=== PATIENT | female | born 1995 | race Caucasian/White ===

== ENCOUNTER 2021-01-05 17:38 | Emergency (ER) | payer BC, SELFPAY ==
[2021-01-05 17:55] VITALS: BP 105/68; PULSE 88; RESP 16; TEMP 36.9; O2SAT 97
--- NOTE | 2021-01-05 18:10 | ED.URI ---
HPI - URI/Sore Throat General Chief Complaint: Upper Respiratory Infection Stated Complaint: sore throat Time Seen by Provider: 01/05/21 18:03 Source: patient and RN notes reviewed Mode of arrival: ambulatory Limitations: no limitations History of Present Illness HPI Narrative: Patient presents today complaining of sore throat since last night with a headache. Denies fever, congestion, rhinorrhea, cough, nausea, vomiting, diarrhea, loss of taste or smell, shortness of breath, or difficulty swallowing. Reports her throat is feeling more swollen than yesterday. Currently rates her pain 6/10 and has been taking DayQuil and cough drops. Cough drops are providing some relief. MD elicited complaint: sore throat Related Data Allergies Allergy/AdvReac Type Severity Reaction Status Date / Time No Known Allergies Allergy Verified 01/05/21 18:14 Review of Systems Review of Systems: Narrative: CONSTITUTIONAL: Denies body aches, fever, chills, or sweats. EYES: Denies visual changes, redness, or discharge. ENT: Denies rhinorrhea, congestion, or otalgia.+ Sore throat CARDIOVASCULAR: Denies chest pain, palpitations, or edema. RESPIRATORY: Denies cough or dyspnea. GASTROINTESTINAL: Denies abdominal pain, nausea, vomiting, or diarrhea. GENITOURINARY: Denies dysuria or hematuria. SKIN: Denies rash, itching, or wounds. MUSCULOSKELETAL: Denies back pain, joint pain, or myalgia. NEUROLOGIC: Denies numbness, tingling, or weakness. + Headache PSYCH: Denies depression or anxiety. PMFSH Comments At time of signature, I have reviewed and agree with nursing past medical, surgical, social and family history unless otherwise noted. Please see nursing chart for further information. There is no relevant family history pertinent to the presenting complaint Exam Narrative: Exam Narrative: GENERAL: Well-appearing, well-nourished, and in no acute distress. HEAD: Normocephalic, atraumatic. EYES: EOMI. No redness or drainage. Conjunctivae normal. ENT: Mucous membranes pink and moist. Nares clear. No rhinorrhea. TMs normal bilaterally. Throat mildly erythematous. Tonsils 3+ without exudate. Uvula midline. NECK: Normal AROM. Supple. No lymphadenopathy. CHEST: No respiratory distress. Clear to auscultation. HEART: Regular rate and rhythm. No murmur appreciated. Normal peripheral pulses. EXTREMITIES: Normal range of motion. No edema. SKIN: Warm, dry, no rash. Capillary refill normal. Normal skin turgor. NEURO: No focal deficits. Alert and oriented x3. Gait steady. PSYCH: Normal affect. No signs of depression or anxiety. Course Vital Signs Vital signs: Vital Signs Temperature 98.4 F 01/05/21 17:55 Pulse Rate 88 01/05/21 17:55 Respiratory Rate 16 01/05/21 17:55 Blood Pressure 105/68 01/05/21 17:55 Pulse Oximetry 97 01/05/21 17:55 Temperature 98.4 F 01/05/21 17:55 Pulse Rate 88 01/05/21 17:55 Respiratory Rate 16 01/05/21 17:55 Blood Pressure 105/68 01/05/21 17:55 Pulse Oximetry 97 01/05/21 17:55 Reviewed MDM - URI/Sore Throat Differential Diagnosis Differential diagnosis: Likely upper respiratory infection, viral infection, pharyngitis and other (Tonsillitis, strep throat) Lab Data Attestation: I reviewed the patient's lab results. Labs: Strep Screen Presumptive Negative *(Reference Range: Negative)* Critical Care Time Critical Care Time Critical Care Time: No Discharge Plan Discharge Clinical Impression: Acute tonsillitis Qualifiers: Pharyngitis/tonsillitis etiology: unspecified etiology Qualified Code(s): J03.90 - Acute tonsillitis, unspecified Patient Disposition: Home, Self-Care Condition: Stable Instructions: Tonsillitis (ED) Additional Instructions: Your rapid strep swab was negative today at [facility]. You will be notified in a few days if the culture comes back positive for strep, and appropriate antibiotics will be
== END 2021-01-05 18:15 | disposition home or self-care (01) ==
PROVIDERS: Emergency Provider Nurse Practitioner
DX: J03.90 Acute tonsillitis, unspecified (principal)
CPT/HCPCS: 87081; 87147; 87880; 99213; G0463

== ENCOUNTER 2021-03-18 15:35 | Emergency (ER) | payer BC, SELFPAY ==
[2021-03-18 15:43] VITALS: BP 145/76; PULSE 96; RESP 16; TEMP 36.9; O2SAT 99
--- NOTE | 2021-03-18 15:49 | ED.SKABFB ---
HPI - Skin/Abscess/Foreign Bdy General Chief complaint: Skin/Abscess/Foreign Body Stated complaint: Sore of left Foot Time Seen by Provider: 03/18/21 15:49 Source: patient Mode of arrival: ambulatory Limitations: no limitations History of Present Illness HPI narrative: Damaris Mackenzie is a 26 yo female with no PMH who comes with a an area of excoriation on the right dorsum of foot after wearing a new pair of of casual shoes on 03/07. 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 Denies any medical condition- blood sugar is 123 here, she is a non-smoker, socially drinks Related Data Allergies Allergy/AdvReac Type Severity Reaction Status Date / Time No Known Allergies Allergy Verified 03/18/21 16:00 Review of Systems Review of Systems: Narrative: CONSTITUTIONAL: Denies fever, chills, sweats. EYES: Denies visual changes, redness, discharge. ENT: Denies rhinorrhea, congestion, sore throat, otalgia. CARDIOVASCULAR: Denies chest pain, palpitations, edema. RESPIRATORY: Denies dyspnea, wheezing, cough GASTROINTESTINAL: Denies abdominal pain, nausea, vomiting, diarrhea. GENITOURINARY: Denies dysuria, hematuria, abnormal discharge SKIN: Denies rash or itching. Area of excoriation of the dorsum of right foot NEUROLOGIC: Denies numbness, or focal weakness. PSYCHIATRIC: Denies anxiety or depression. [facility] Past Medical History Medical History (Updated 03/18/21 @ 16:17 by Kamille Delgado CNP) No acute medical problems Family History Family History (Updated 03/18/21 @ 16:07 by Kamille Delgado CNP) Other Hypertension Social History Social History (Updated 03/18/21 @ 16:07 by Kamille Delgado CNP) Smoking status: Never smoker Alcohol intake: current Comments At time of signature, I agree with nursing past medical, surgical, social and family history. There is no relevant family history pertinent to the presenting complaint. Exam Narrative: Exam Narrative: GENERAL: This is a well-nourished, well-developed patient, in mild distress. HEAD: normocephalic, atraumatic. EYES: Sclera clear/white. Vision is grossly intact. EARS: External ears normal, . Hearing grossly intact. NOSE: External nose normal without nasal discharge, nares without redness, no rhinorrhea. THROAT: Mucous membranes moist, NECK: Neck supple, non-tender CARDIOVASCULAR: Regular rate and rhythm without murmurs, gallops, or rubs. RESPIRATORY: Clear to auscultation. Breath sounds equal bilaterally. No wheezes, rales, or rhonchi. GASTROINTESTINAL: Abdomen soft, SKIN: warm, intact with 6 x 2.5 area of excoriation, no drainage, top layer is removed, pain is 1/10 NEURO: awake, alert, and oriented to person, place and time. There were no obvious focal neurologic abnormalities. Steady gait EXTREMITIES: Normal range of motion. BACK: Nontender without deformity Course Course Emergency Course: Excoriated on area on foot due to new shoes-plan is to use triamcinolone cream leave area open for the next day or 2 if possible start on Keflex orally, when working keep area covered with Telfa dressing and wicking socks If area does not start to heal follow-up with the junior accounting clerk referrals given Vital Signs Vital signs: Vital Signs Temperature 98.4 F 03/18/21 15:43 Pulse Rate 96 03/18/21 15:43 Respiratory Rate 16 03/18/21 15:43 Blood Pressure 145/76 H 03/18/21 15:43 Pulse Oximetry 99 03/18/21 15:43 Temperature 98.4 F 03/18/21 15:43 Pulse Rate 96 03/18/21 15:43 Respiratory Rate 16 03/18/21 15:43 Blood Pressure 145/76 H 03/18/21 15:43 Pulse Oximetry 99 03/18/21 15:43 MDM - Skin/Abscess/Foreign Bdy Differential Diagnosis Differential diagnosis: Likely abscess of skin or subcutaneous tissue, viral exanthem, urticaria, cellulitis, eczema and contact dermatitis Lab Data Labs: Lab Results 03/18/21 Range/Units 15:58 POC Cap
[2021-03-18 16:01] LABS: Glucose Point of Care 123 mg/dl (65-105)
== END 2021-03-18 16:20 | disposition home or self-care (01) ==
PROVIDERS: Emergency Provider Nurse Practitioner
DX: S91.302A Unspecified open wound, left foot, initial encounter (principal); X58.XXXA Exposure to other specified factors, initial encounter
CPT/HCPCS: 82948; 99213; G0463

== ENCOUNTER 2021-04-11 09:51 | Emergency (ER) | payer BC, SELFPAY ==
[2021-04-11 09:56] VITALS: BP 133/76; PULSE 89; RESP 18; TEMP 37.3; O2SAT 99
[2021-04-11 10:04] VITALS: BP 133/76; PULSE 89; RESP 18; TEMP 37.3; O2SAT 99
--- NOTE | 2021-04-11 10:41 | ED.URI ---
HPI - URI/Sore Throat General Chief Complaint: Upper Respiratory Infection Stated Complaint: Sore Throat Time Seen by Provider: 04/11/21 10:05 Source: patient, RN notes reviewed and old records reviewed Mode of arrival: ambulatory Limitations: no limitations History of Present Illness HPI Narrative: 26 year old female presents to [facility] care with complaints of sore throat and myalgia which started yesterday. Patient states that she has history of strep pharyngitis. She is also concerned that she may also have been exposed to [place] and wants to be checked. Patient denies any fevers,chills, or sweats. She denies any headache, nasal congestion or drainage, no ear pain or cough. She states that her throat is painful with swallowing but has been taking fluids well, denies any nausea or vomiting. MD elicited complaint: sore throat Pertinent past history: other (previous strep throat) Onset (ago): day(s) (1) Consistency: constant Severity: moderate Pain scale (0-10): 6 Able to tolerate fluids by mouth: Yes Exacerbating factors: swallowing Context: sick contacts Associated symptoms: myalgias Treatments prior to arrival: none Related Data Allergies Allergy/AdvReac Type Severity Reaction Status Date / Time No Known Allergies Allergy Verified 04/11/21 10:03 Review of Systems Review of Systems: Narrative: CONSTITUTIONAL: Denies fever, chills, or sweats. EYES: Denies visual changes, redness, or discharge. ENT: Denies rhinorrhea, congestion, positive sore throat, no otalgia. CARDIOVASCULAR: Denies chest pain, palpitations, or edema. RESPIRATORY: Denies cough or dyspnea. GASTROINTESTINAL: Denies abdominal pain, nausea, vomiting, or diarrhea. GENITOURINARY: Denies dysuria or hematuria. SKIN: Denies rash or itching. MUSCULOSKELETAL: Denies back pain, joint pain, positive myalgia. NEUROLOGIC: Denies headache, numbness, or weakness. PSYCHIATRIC: Denies anxiety or depression. All systems reviewed & are unremarkable except as noted in HPI and below PMFSH Past Medical History Medical History (Updated 04/11/21 @ 11:21 by Anai Schwartz NP) No acute medical problems Surgical History Surgical History (Updated 04/11/21 @ 11:21 by Anai Schwartz NP) No history of previous surgery Family History Family History (Updated 04/11/21 @ 11:20 by Anai Schwartz NP) Grandparent Breast cancer Acute myocardial infarction Father Depression Other Hypertension Social History Social History (Updated 04/11/21 @ 11:20 by Anai Schwartz NP) Smoking status: Never smoker Alcohol intake: current Substance use: never Living arrangements: alone Gender identity (if verbalized by the patient): Female Comments At time of signature, agree with nursing past medical, surgical, social and family history. There is no relevant family history pertinent to the presenting complaint Exam Narrative: Exam Narrative: GENERAL: Well-appearing, well-nourished, and in no acute distress. HEAD: Normocephalic, atraumatic. EYES: PERRLA and EOMI. ENT: Nares clear, no rhinorrhea or epistaxis. Mucous membranes moist.TM's normal with good light reflex, throat red with no lesions or exudates left tonsil enlarged and red. NECK: Supple. lymphadenopathy left side CHEST: Clear to auscultation. No respiratory distress.SAO2 99% on room air HEART: Regular rate and rhythm. No murmur heard. Normal peripheral pulses. ABDOMEN: Soft, nontender, nondistended, normal active bowel sounds. EXTREMITIES: Normal range of motion. No edema. SKIN: Warm, dry, no rash. NEURO: No focal deficits. Alert and oriented x3. Course Vital Signs Vital signs: Vital Signs Temperature 37.3 C 04/11/21 09:56 Pulse Rate 89 04/11/21 09:56 Respiratory Rate 18 04/11/21 09:56 Blood Pressure 133/76 04/11/21 09:56 Pulse Oximetry 99 04/11/21 09:56 Temperature 37.3 C 04/11/21 10:04 Pulse Rate 89 04/11/21 10:04 Respiratory Rate 18 04/11/21 10:04 Blood Pre
== END 2021-04-11 10:54 | disposition home or self-care (01) ==
PROVIDERS: Emergency Provider Registered Nurse
DX: J02.0 Streptococcal pharyngitis (principal)
CPT/HCPCS: 36416; 86308; 87880; 99213; G0463

== ENCOUNTER 2022-02-14 14:15 | Emergency (ER) | payer OTHER, BC, SELFPAY ==
--- NOTE | 2022-02-14 14:18 | ED.LOWEXIN ---
HPI - Extremity Injury (Lower) General Chief Complaint: Extremity Injury, Lower Stated Complaint: Right Leg Injury Time Seen by Provider: 02/14/22 14:18 Source: patient and RN notes reviewed History of Present Illness HPI Narrative: Patient is a 27-year-old female who presents the urgent care with complaints of right groin pain. Patient states that she stepped off some high scaffolding with her left leg and her right leg got hung up on the scaffolding. Patient states she has been taking an old muscle relaxer with mild improvement. Patient also took Aleve. No other acute complaints. No acute distress noted. Patient aware of the plan of care. Some parts of this dictation were generated by voice recognition software and may contain typographical and/or grammatical inaccuracies. Related Data Allergies Allergy/AdvReac Type Severity Reaction Status Date / Time No Known Allergies Allergy Verified 02/14/22 14:32 Review of Systems Review of Systems: CONSTITUTIONAL: Denies fever, chills, or sweats. EYES: Denies visual changes, redness, or discharge. ENT: Denies rhinorrhea, congestion, sore throat, or otalgia. CARDIOVASCULAR: Denies chest pain, palpitations, or edema. RESPIRATORY: Denies cough or dyspnea. GASTROINTESTINAL: Denies abdominal pain, nausea, vomiting, or diarrhea. GENITOURINARY: Denies dysuria or hematuria. SKIN: Denies rash or itching. MUSCULOSKELETAL: Reports of right groin pain NEUROLOGIC: Denies headache, numbness, or weakness. All other systems reviewed are negative, except as documented in HPI. [facility] Past Medical History Medical History (Updated 02/14/22 @ 14:50 by CHARLENE Tamez) No acute medical problems Surgical History Surgical History (Updated 04/11/21 @ 11:21 by Anai Schwartz NP) No history of previous surgery Family History Family History (Updated 04/11/21 @ 11:20 by Anai Schwartz NP) Grandparent Breast cancer Acute myocardial infarction Father Depression Other Hypertension Social History Social History (Updated 04/11/21 @ 11:20 by Anai Schwartz NP) Smoking status: Never smoker Alcohol intake: current Substance use: never Gender identity (if verbalized by the patient): Female Comments At the time of my signature, I reviewed and agree with the nursing past medical, surgical, social, and family history. There is no relevant family history pertinent to the patient complaint. Exam Narrative: GENERAL: This is a well-nourished, well-developed patient, in no apparent distress. HEAD: normocephalic, atraumatic. EYES: PERRL. Sclera clear/white. Vision is grossly intact. EARS: External ears normal NOSE: External nose normal with no obvious nasal discharge, nares without redness, no rhinorrhea. THROAT: Mucous membranes moist NECK: Neck supple CARDIOVASCULAR: Regular rate and rhythm without murmurs, gallops, or rubs. RESPIRATORY: Clear to auscultation. Breath sounds equal bilaterally. No wheezes, rales, or rhonchi. SKIN: warm, intact with no suspicious lesions or rash, good texture and turgor. NEURO: awake, alert, and oriented to person, place and time. There were no obvious focal neurologic abnormalities. EXTREMITIES: No clubbing, cyanosis, or edema. Moderate inguinal right groin tenderness without ecchymosis or edema. Range of motion to right lower extremity within normal limits with mild exacerbated pain on abduction, abduction Course Course Level of Care: Express Care Visit Vital Signs Vital signs: Vital Signs Temperature 98.4 F 02/14/22 14:20 Pulse Rate 78 02/14/22 14:20 Respiratory Rate 20 02/14/22 14:20 Blood Pressure 138/73 02/14/22 14:20 Pulse Oximetry 100 02/14/22 14:20 Temperature 98.4 F 02/14/22 14:20 Pulse Rate 78 02/14/22 14:20 Respiratory Rate 20 02/14/22 14:20 Blood Pressure 138/73 02/14/22 14:20 Pulse Oximetry 100 02/14/22 14:20 Reviewed MDM - Extremity Injury (Lower) MDM Narrative Medic
[2022-02-14 14:20] VITALS: BP 138/73; PULSE 78; RESP 20; TEMP 36.9; O2SAT 100
== END 2022-02-14 14:55 | disposition home or self-care (01) ==
PROVIDERS: Emergency Provider Nurse Practitioner Family
DX: S39.011A Strain of muscle, fascia and tendon of abdomen, initial encounter (principal); W22.09XA Striking against other stationary object, initial encounter
CPT/HCPCS: 99213; G0463

== ENCOUNTER 2022-03-27 15:26 | Emergency (ER) | payer BC, SELFPAY ==
[2022-03-27 15:40] VITALS: BP 130/89; PULSE 82; RESP 16; TEMP 36.8; O2SAT 98
--- NOTE | 2022-03-27 16:18 | ED.DENTAL ---
HPI - Dental/Oral General Chief complaint: Dental/Oral Stated complaint: gums are swollen & tender Time Seen by Provider: 03/27/22 16:20 Source: patient Mode of arrival: ambulatory Limitations: no limitations History of Present Illness HPI Narrative: 27-year-old female presents with concern for right lower jaw pain, pain in the gum area and a sore on her tongue. She reports 3 days of symptoms. Reports she has been to the dentist in a while. She denies broken teeth, missing teeth, cavities. She denies trouble swallowing, fever, headache, body aches. MD Complaint: tooth pain Related Data Allergies Allergy/AdvReac Type Severity Reaction Status Date / Time No Known Allergies Allergy Verified 02/14/22 14:32 Review of Systems Review of Systems: CONSTITUTIONAL: Denies malaise, chills, sweats, or fever. EYES: Denies visual changes ENT: Denies rhinorrhea, congestion, sinus pain, otalgia or sore throat. Reports right jaw pain, right gumline pain, sore on her tongue. CARDIOVASCULAR: Denies chest pain, palpitations RESPIRATORY: Denies cough or dyspnea. SKIN: Denies rash or itching. MUSCULOSKELETAL: Denies myalgia. NEUROLOGIC: Denies numbness, weakness, or headache. All systems reviewed & are unremarkable except as noted in HPI and below PMFSH Past Medical History Medical History (Updated 03/27/22 @ 16:27 by Leyla Freire NP) No acute medical problems Surgical History Surgical History (Updated 04/11/21 @ 11:21 by Anai Schwartz NP) No history of previous surgery Family History Family History (Updated 04/11/21 @ 11:20 by Anai Schwartz NP) Grandparent Breast cancer Acute myocardial infarction Father Depression Other Hypertension Social History Social History (Updated 04/11/21 @ 11:20 by Anai Schwartz NP) Smoking status: Never smoker Alcohol intake: current Substance use: never Gender identity (if verbalized by the patient): Female Comments At time of signature, agree with nursing past medical, surgical, social and family history. There is no relevant family history pertinent to the presenting complaint Exam Narrative: GENERAL: Well-appearing, well-nourished, and in no acute distress. HEAD: Normocephalic, atraumatic. EYES: PERRLA, sclera clear ENT: Nares clear, turbinates pink, no rhinorrhea or epistaxis. Mucous membranes moist. TM pearly franco with sharp light reflex bilaterally; no tragal tenderness. Oropharynx without erythema or lesions. Tonsils not enlarged and without exudate. Nomissing teeth, broken teeth, caries, no periapical abscess noted. Raw skin noted to the lateral tongue. Right jaw tenderness NECK: Supple. No lymphadenopathy. CHEST: No respiratory distress. Speaks in full sentences. HEART: Regular rate and rhythm. SKIN: Warm, dry, no visible rash. NEURO: Alert and oriented x3. PSYCH: Normal mood and affect Course Course Emergency Course: Patient is aware of diagnosis, understands and agrees to treatment plan. Anticipatory guidance given. Patient agrees to follow-up as directed and is aware of reasons to seek care at the emergency department. Portions of this record may have been created with voice recognition software Level of Care: Express Care Visit Vital Signs Vital signs: Vital Signs Temperature 98.3 F 03/27/22 15:40 Pulse Rate 82 03/27/22 15:40 Respiratory Rate 16 03/27/22 15:40 Blood Pressure 130/89 03/27/22 15:40 Pulse Oximetry 98 03/27/22 15:40 Oxygen Delivery Room Air 03/27/22 15:40 Temperature 98.3 F 03/27/22 15:40 Pulse Rate 82 03/27/22 15:40 Respiratory Rate 16 03/27/22 15:40 Blood Pressure 130/89 03/27/22 15:40 Pulse Oximetry 98 03/27/22 15:40 Oxygen Delivery Room Air 03/27/22 15:40 Reviewed. MDM - Dental/Oral MDM Narrative Medical decision making narrative: Patients pain and complaint coupled with physical findings are consistant with dentalgia. There are no focal signs of space
== END 2022-03-27 16:30 | disposition home or self-care (01) ==
PROVIDERS: Emergency Provider Nurse Practitioner
DX: K08.89 Other specified disorders of teeth and supporting structures (principal)
CPT/HCPCS: 99213; G0463

== ENCOUNTER 2022-05-07 11:55 | Emergency (ER) | payer BC, SELFPAY ==
[2022-05-07 12:15] VITALS: BP 131/77; PULSE 73; RESP 20; TEMP 36.9; O2SAT 100
--- NOTE | 2022-05-07 13:27 | ED.GENADULT ---
HPI - General Adult General Chief complaint: Upper Respiratory Infection Stated complaint: Sore throat Source: patient Mode of arrival: ambulatory Limitations: no limitations History of Present Illness HPI narrative: Patient presents for evaluation of sore throat since last night. She indicates it started as a scratchy sensation but now she reports pain. No fever, chills, nausea, vomiting, otalgia, or respiratory symptoms. She took a home COVID test which was negative. She has had similar symptoms in the past with strep. No recent sick contacts to her knowledge. She is not taking any medication to assist with her symptoms. In the past her rapid strep testing was negative but subsequent culture was positive. She saw some white exudate in her posterior pharynx earlier today. No additional complaints or concerns Related Data Allergies Allergy/AdvReac Type Severity Reaction Status Date / Time No Known Allergies Allergy Verified 02/14/22 14:32 Review of Systems Review of Systems: CONSTITUTIONAL: Denies fever, chills, or sweats. EYES: Denies visual changes, redness, or discharge. ENT: Reports sore throat. Denies rhinorrhea, congestion or otalgia. CARDIOVASCULAR: Denies chest pain, palpitations, or edema. RESPIRATORY: Denies cough or dyspnea. GASTROINTESTINAL: Denies abdominal pain, nausea, vomiting, or diarrhea. GENITOURINARY: Denies dysuria or hematuria. SKIN: Denies rash or itching. MUSCULOSKELETAL: Denies back pain, joint pain, or myalgia. NEUROLOGIC: Denies headache, numbness, dizziness, or weakness. PSYCHIATRIC: Denies anxiety or depression.. [facility] Past Medical History Medical History No acute medical problems Surgical History Surgical History No history of previous surgery Family History Family History Grandparent Breast cancer Acute myocardial infarction Father Depression Other Hypertension Social History Social History Smoking status: Never smoker Alcohol intake: current Substance use: never Living arrangements: alone Gender identity (if verbalized by the patient): Female Spiritual care concerns: No Exam Narrative: GENERAL: Well-appearing, well-nourished, and in no acute distress. HEAD: Normocephalic, atraumatic. EYES: PERRLA and EOMI. ENT: Nares clear, no rhinorrhea or epistaxis. Mucous membranes moist. Bilateral tonsillar enlargement with erythema and mild presence of white exudate. Uvula is midline. Bilateral TMs pearly franco nonbulging NECK: Supple. No adenopathy or masses. No carotid bruits or JVD CHEST: Clear to auscultation. No respiratory distress. No wheezes rales or rhonchi HEART: Regular rate and rhythm. No murmur heard. Normal peripheral pulses. ABDOMEN: Soft, nontender, nondistended, normal active bowel sounds. EXTREMITIES: Normal range of motion. No edema. SKIN: Warm, dry, no rash. NEURO: No focal deficits. Alert and oriented x3. PSYCH: Normal mood and affect. Course Course Emergency Course: This is a 27-year-old female who presented with complaints of abrupt onset sore throat. She has had strep in the past and this feels similar. In the past her rapid strep was negative but throat culture was positive. Rapid strep here negative. Will DC with amoxicillin. Increase hydration. Follow-up outpatient for further evaluation and treatment. Go to the ER for decline in condition. Patient is in agreement with plan of care. Level of Care: Express Care Visit Vital Signs Vital signs: Vital Signs Temperature 36.9 C 05/07/22 12:15 Pulse Rate 73 05/07/22 12:15 Respiratory Rate 20 05/07/22 12:15 Blood Pressure 131/77 05/07/22 12:15 Pulse Oximetry 100 05/07/22 12:15 Oxygen Delivery Room Air 05/07/22 12:15
== END 2022-05-07 13:30 | disposition home or self-care (01) ==
PROVIDERS: Emergency Provider Nurse Practitioner
DX: J02.9 Acute pharyngitis, unspecified (principal)
CPT/HCPCS: 87081; 87880; 99213; G0463

== ENCOUNTER 2022-08-15 13:45 | Emergency (ER) | payer BC, SELFPAY ==
--- NOTE | 2022-08-15 13:47 | ED.SKABFB ---
HPI - Skin/Abscess/Foreign Bdy General Chief complaint: Environmental Exposure Stated complaint: hands -allergic reaction Time Seen by Provider: 08/15/22 13:47 Source: patient and RN notes reviewed History of Present Illness HPI narrative: patient is a 27-year-old female who presents the Urgent Care complaints possible allergic reactions. Patient states that she wears gloves at work however does use chemicals and believes it is due to the chemical use. Patient states she noticed some blistering a few days ago. Patient has not been doing anything [id number] for her symptoms. No other acute complaints. No acute distress. Patient aware of the plan of care. Some parts of this dictation were generated by voice recognition software and may contain typographical and/or grammatical inaccuracies. Related Data Allergies Allergy/AdvReac Type Severity Reaction Status Date / Time No Known Allergies Allergy Verified 08/15/22 14:02 Review of Systems Review of Systems: CONSTITUTIONAL: Denies fever, chills, or sweats. EYES: Denies visual changes, redness, or discharge. ENT: Denies rhinorrhea, congestion, sore throat, or otalgia. CARDIOVASCULAR: Denies chest pain, palpitations, or edema. RESPIRATORY: Denies cough or dyspnea. GASTROINTESTINAL: Denies abdominal pain, nausea, vomiting, or diarrhea. GENITOURINARY: Denies dysuria or hematuria. SKIN: Bilateral hand blistering and erythema MUSCULOSKELETAL: Denies back pain, joint pain, or myalgia. NEUROLOGIC: Denies headache, numbness, or weakness. All other systems reviewed are negative, except as documented in HPI. [facility] Past Medical History Medical History No acute medical problems Surgical History Surgical History No history of previous surgery Family History Family History Grandparent Breast cancer Acute myocardial infarction Father Depression Other Hypertension Social History Social History Smoking status: Never smoker Alcohol intake: current Substance use: never Gender identity (if verbalized by the patient): Female Spiritual care concerns: No Comments At the time of my signature, I reviewed and agree with the nursing past medical, surgical, social, and family history. There is no relevant family history pertinent to the patient complaint. Exam Narrative: GENERAL: This is a well-nourished, well-developed patient, in no apparent distress. HEAD: normocephalic, atraumatic. EYES: PERRL. Sclera clear/white. Vision is grossly intact. EARS: External ears normal NOSE: External nose normal with no obvious nasal discharge, nares without redness, no rhinorrhea. THROAT: Mucous membranes moist NECK: Neck supple, non-tender without lymphadenopathy, masses or thyromegaly. SKIN: [id number] bilateral hand edema with mild erythema and blistering- chemical burn.warm, intact with no suspicious lesions or rash, good texture and turgor. NEURO: awake, alert, and oriented to person, place and time. There were no obvious focal neurologic abnormalities. EXTREMITIES: No clubbing, cyanosis, or edema. Course Course Level of Care: Express Care Visit Vital Signs Vital signs: Vital Signs Temperature 98.7 F 08/15/22 13:52 Pulse Rate 75 08/15/22 13:52 Respiratory Rate 20 08/15/22 13:52 Blood Pressure 114/79 08/15/22 13:52 Pulse Oximetry 100 08/15/22 13:52 Oxygen Delivery Room Air 08/15/22 13:52 Temperature 98.7 F 08/15/22 13:52 Pulse Rate 75 08/15/22 13:52 Respiratory Rate 20 08/15/22 13:52 Blood Pressure 114/79 08/15/22 13:52 Pulse Oximetry 100 08/15/22 13:52 Oxygen Delivery Room Air 08/15/22 13:52 reviewed MDM - Skin/Abscess/Foreign Bdy MDM Narrative Medical decision
[2022-08-15 13:52] VITALS: BP 114/79; PULSE 75; RESP 20; TEMP 37.1; O2SAT 100
== END 2022-08-15 14:24 | disposition home or self-care (01) ==
PROVIDERS: Emergency Provider Nurse Practitioner Family
DX: T23.602A Corrosion of second degree of left hand, unspecified site, initial encounter (principal); T23.601A Corrosion of second degree of right hand, unspecified site, initial encounter; T65.91XA Toxic effect of unspecified substance, accidental (unintentional), initial encounter; T32.0 Corrosions involving less than 10% of body surface; Y99.0 Civilian activity done for income or pay
CPT/HCPCS: 99213; G0463

== ENCOUNTER 2023-08-06 11:09 | Emergency (ER) | payer BC, SELFPAY ==
--- NOTE | 2023-08-06 11:16 | ED.URI ---
HPI - URI/Sore Throat General Chief Complaint: Ear Stated Complaint: Ear Pain/Cough Source: patient and RN notes reviewed History of Present Illness HPI Narrative: 28-year-old male presents to urgent care with complaints of a congested cough x2 weeks. Patient is also reporting right ear pain times 1 week. Patient states her right side of neck hurts and radiates down her right shoulder and right upper arm. Patient denies any fevers, chills numbness, tingling, sore throat, chest pain, shortness of breath, or vomiting. Related Data Allergies Allergy/AdvReac Type Severity Reaction Status Date / Time No Known Allergies Allergy Verified 08/15/22 14:02 Review of Systems Review of Systems: Pertinent positives and pertinent negatives per HPI. [facility] Past Medical History Medical History No acute medical problems Surgical History Surgical History No history of previous surgery Family History Family History Grandparent Breast cancer Acute myocardial infarction Father Depression Other Hypertension Social History Social History Smoking status: Never smoker Alcohol intake: current Substance use: never Living arrangements: alone Gender identity (if verbalized by the patient): Female Spiritual care concerns: No Comments At the time of my signature, I reviewed and agree with the nursing past medical, surgical, social, and family history. There is no relevant family history pertinent to the patient complaint. Exam Narrative: GENERAL: This is a well-nourished, well-developed patient, in no apparent distress. HEAD: normocephalic, atraumatic. EYES: Sclera clear/white. Vision is grossly intact. EARS: External ears normal, auditory canals clear and without drainage, left TM normal without perforation. Right TM bulging and erythremic. NOSE: External nose normal with no obvious nasal discharge. + congestion and sinus pressure. THROAT: Mucous membranes moist, posterior pharynx clear. NECK: Neck supple, non-tender without lymphadenopathy, masses or thyromegaly. pt has limited ROM with her neck due to pain on the right lateral side when she attempts to rotate to the left and right. No posterior neck pain. CARDIOVASCULAR: Regular rate and rhythm without murmurs, gallops, or rubs. RESPIRATORY: Mild rhonchi noted throughout the chest on auscultation. pt has congested cough in exam room. SKIN: warm, intact with no suspicious lesions or rash, good texture and turgor. NEURO: awake, alert, and oriented to person, place and time. There were no obvious focal neurologic abnormalities. EXTREMITIES: No clubbing, cyanosis, or edema. No joint tenderness, effusion, or edema noted. BACK: Nontender without deformity or crepitus. No flank tenderness. Course Course Level of Care: Express Care Visit Vital Signs Vital signs: Vital Signs Pulse Rate 76 08/06/23 11:18 Respiratory Rate 16 08/06/23 11:18 Blood Pressure 150/84 H 08/06/23 11:18 Pulse Oximetry 98 08/06/23 11:18 Oxygen Delivery Room Air 08/06/23 11:18 Pulse Rate 76 08/06/23 11:18 Respiratory Rate 16 08/06/23 11:18 Blood Pressure 150/84 H 08/06/23 11:18 Pulse Oximetry 98 08/06/23 11:18 Oxygen Delivery Room Air 08/06/23 11:18 Reviewed MDM - URI/Sore Throat MDM Narrative Medical decision making narrative: Go to the ER for any new or worsening symptoms. Avoid smoking/second-hand smoke. Continue to take Tylenol or Motrin for pain. Increase your Vitamin C intake. Use a humidifier or vaporizer at night. Take Medications as prescribed. Drink plenty of water. 8-10 glasses per day. Use flonase 2 times per day for 5 days then as needed Take mucinex 2 times per day and be sure to take with
[2023-08-06 11:18] VITALS: BP 150/84; PULSE 76; RESP 16; O2SAT 98
== END 2023-08-06 12:01 | disposition home or self-care (01) ==
PROVIDERS: Emergency Provider Nurse Practitioner Family
DX: J40 Bronchitis, not specified as acute or chronic (principal); H66.91 Otitis media, unspecified, right ear; S16.1XXA Strain of muscle, fascia and tendon at neck level, initial encounter; X58.XXXA Exposure to other specified factors, initial encounter
CPT/HCPCS: 99213; G0463

== ENCOUNTER 2023-08-23 12:55 | Emergency (ER) | payer BC, SELFPAY ==
--- NOTE | 2023-08-23 12:58 | ED.URI ---
HPI - URI/Sore Throat General Chief Complaint: Upper Respiratory Infection Stated Complaint: sore throat Time Seen by Provider: 08/23/23 12:56 Source: patient Mode of arrival: ambulatory Limitations: no limitations History of Present Illness HPI Narrative: Damaris is a 28-year-old female patient presenting to the clinic today with complaints of sore throat and slight cough x1 day. She is concerned she may have strep. No known fever, chills, body aches, abdominal pain, or headache. No known exposure to anyone with COVID, flu, or strep. MD elicited complaint: cough and sore throat Related Data Allergies Allergy/AdvReac Type Severity Reaction Status Date / Time No Known Allergies Allergy Verified 08/15/22 14:02 Review of Systems Review of Systems: Pertinent positives per HPI. Patient denies any fever, chills, rash, headache, visual changes, dizziness, cough, runny nose, sore throat, shortness of breath, chest pain, palpitations, nausea, vomiting, diarrhea, constipation, abdominal pain, or any urinary issues. PMFSH Past Medical History Medical History No acute medical problems Surgical History Surgical History No history of previous surgery Family History Family History Grandparent Breast cancer Acute myocardial infarction Father Depression Other Hypertension Social History Social History Smoking status: Never smoker Alcohol intake: current Substance use: never Living arrangements: alone Gender identity (if verbalized by the patient): Female Spiritual care concerns: No Comments At the time of my signature, I reviewed and agree with the nursing past medical, surgical, social, and family history. There is no relevant family history pertinent to the patient complaint. Exam Narrative: General: Well-developed, well nourished, in no apparent distress Head: Normocephalic, atraumatic Eyes: Pupils equally round and reactive to light bilaterally, EOM intact, sclera and conjunctive clear, no discharge, lids normal Ears: TMs intact and clear, ear canals clear, no drainage, grossly hearing normal. Nose: Nares patent, no discharge, no inflammation, no sinus tenderness. Mouth: Oropharynx without lesions or masses, good dentition, MMM. Neck: Supple, trachea midline, no enlargement of anterior or posterior cervical nodes, no thyroid masses or goiter palpable. Cardio: Regular rate and rhythm, s1 and s2 normal, no murmur appreciated. Resp: Clear to auscultation bilaterally anteriorly and posteriorly, no rhonchi, rales, wheezing or rubs Course Course Emergency Course: Portions of this record may have been created with voice recognition software. Level of Care: Express Care Visit Vital Signs Vital signs: Vital signs reviewed MDM - URI/Sore Throat MDM Narrative Medical decision making narrative: At the time of visit patient is resting comfortably on the exam table. Strep screen was obtained and was positive in the clinic today. Amoxicillin was sent to the pharmacy and supportive measures were discussed with the patient she voiced understanding discharge instructions agrees to treatment plan. Differential Diagnosis Differential diagnosis: Likely upper respiratory infection, otitis media, sinusitis, viral infection, bronchitis, influenza, pharyngitis and other (COVID) Discharge Plan Discharge Clinical Impression: Acute streptococcal pharyngitis Patient Disposition: Home, Self-Care Condition: Stable Instructions: Antibiotic Form, Strep Throat (ED) Additional Instructions: Take prescription medications only as prescribed-amoxicillin Change your toothbrush in 24 hours after initiation antibiotic Increase fluids and stay well hydrated No
[2023-08-23 13:06] VITALS: BP 118/77; PULSE 83; RESP 16; TEMP 36.3; O2SAT 97
== END 2023-08-23 13:16 | disposition home or self-care (01) ==
PROVIDERS: Emergency Provider Nurse Practitioner Family
DX: J02.0 Streptococcal pharyngitis (principal)
CPT/HCPCS: 87880; 99213; G0463